=== PATIENT | female | born 1970 | race Caucasian/White ===

== ENCOUNTER 2024-04-04 14:45 | Emergency (ER) | payer OTHER ==
[~2024-04-04] VITALS: Ht 154.9 cm; Wt 70.3 kg
[2024-04-04 16:11] VITALS: BP 148/79; O2SAT 99
== END 2024-04-04 16:13 | disposition home or self-care (01) ==
LOC: ER 14:45
DX: R42 Dizziness and giddiness (principal); T43.595A Adverse effect of other antipsychotics and neuroleptics, initial encounter; E78.5 Hyperlipidemia, unspecified; F32.A Depression, unspecified; Z98.890 Other specified postprocedural states; Z88.5 Allergy status to narcotic agent; Y92.89 Other specified places as the place of occurrence of the external cause
CPT/HCPCS: A4606; A4663